=== PATIENT | female | born 1990 | race Caucasian/White ===

== ENCOUNTER 2022-09-29 07:39 | Inpatient (IN) ==
[2022-09-29] MEDS ORDERED: PENICILLIN G POTASSIUM 6 MU in DEXTROSE 5% 250 ML IV STA (08:16)
[2022-09-29] MEDS ORDERED: LIDOCAINE 1% LOCAL 20 ML VIAL INFIL PRN (08:16)
[2022-09-29] MEDS ORDERED: OXYTOCIN 30 UNITS/500 ML BAG IV PRN ×4 (08:16→22:49)
[2022-09-29] MEDS: SERTRALINE HCL 50 MG TABLET PO SCH ×2 (09:30→22:45)
[2022-09-29] MEDS: LACTATED RINGER'S 1,000 ML IV PRN ×3 (09:50→18:42)
--- NOTE | 2022-09-29 11:40 | History & Physical Report ---
Date of Service September 29, 2022 Assessment & Plan (1) Gestational hypertension: Plan: IUP at 37-1/7 weeks who presents for induction of labor because of gestational hypertension. We will begin penicillin G prophylaxis for GBS. We will also begin Pitocin induction per protocol. Epidural when requested. Anticipate vaginal . Admission and Anticipated Discharge Date Admission Date: September 29, 2022 History of Present Illness Primary Care Provider: NO PCP Patient is a 31-year-old G1, P0 female who presents for induction at 37-1/7 weeks because of gestational hypertension. At her routine OB visit yesterday, her blood pressure was 140/100 with 1+ proteinuria. She was sent to labor and delivery for blood pressure monitoring and preeclampsia blood work. Her blood pressure was normotensive and blood work was within the normal range. During her visit in labor and delivery, she had a cervical balloon placed. The balloon fell out at approximately 1700 last evening. She has had no contractions over the evening. She has experienced no PIH symptoms. 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 testing was reassuring. She has no current symptoms of HSV. Estimated weight on growth scan at 32 weeks was 64th percentile. GBS positive. 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 Depression with anxiety Zoloft 150mg PO daily. Has been doing well this . Gestational hypertension Herpes Started Valtrex at 36 Weeks. Last out break about 2 years ago. Surgical History S/P tonsillectomy S/P wisdom tooth extraction Family History Father Diabetes Hypertension Dyslipidemia Mother Heart disease Hypertension Dyslipidemia Hypothyroid Aunt Breast cancer Social History (Updated 09/29/22 @ 08:25 by Renae Kilgore RN) Smoking Status: Never smoker Do You Dip or Chew Tobacco: No; Hx Alcohol Use: No Hx Substance Use: No Preferred Language: Chinese Communication Ability: Effective Industrial Insulator Required: No Beliefs That Will Affect Care: None marital status: marital status details: Avel Bernard (31) [phone] Current Living Situation: Spouse Current Living Situation Comment: Lives with spouse and 1 dog. current occupational status: employed current occupation: [employer] Feels Safe at Home: Yes Safety Concerns: Feels Safe At This Time Diet: regular Assistive Devices: Glasses Review of Systems All systems reviewed & are unremarkable except as noted in HPI & below Physical Exam Constitutional: WD/WN, vitals as above Psychiatric: A+Ox3, euthymic affect Genitourinary: OB Exam Abdomen: + vertex and + estimated weight (7-8 pounds) Manual OB Exam: + cervical dilation 4 cm, + cervical effacement 80% and + station -1 OB Exam Monitor Tracing: + external FHT monitor used, + external uterine monitor used and + category I Results & Data Vital Signs (Past 12 Hours) Vital Signs Temp Pulse Resp BP 09/29/22 08:24 98.2 F 18 09/29/22 11:00 98.1 F 09/29/22 10:54 70 141/93 H 09/29/22 09:53 69 138/87 09/29/22 08:15 75 138/91 Coding Level of Care Code None Diagnoses Gestational hypertension O13.9
[2022-09-29] MEDS: PENICILLIN G POTASSIUM 3 MU in DEXTROSE 5% 100 ML IV PRN ×2 (13:34→17:59)
[2022-09-29] MEDS ORDERED: fentaNYL citrate PF 100 MCG/2 ML VIAL ONE (17:50)
[2022-09-29] MEDS ORDERED: ePHEDrine sulfate 50 MG/ML AMP ONE (17:50)
[2022-09-29] MEDS ORDERED: SODIUM CHLORIDE 0.9% PF INJ 10 ML VIAL ONE (17:51)
[2022-09-29] MEDS ORDERED: fentaNYL 2MCG/ML ROPIVACAINE 1.25MG/ML 100 ML BAG EPI ONE (17:51)
[2022-09-29] MEDS ORDERED: BUPIVACAINE 0.25% PF 30 ML VIAL ONE (17:51)
[2022-09-29] MEDS ORDERED: LIDOCAINE 2%/EPINEPHRINE 1:200,000 20 ML PF ONE (17:51)
--- NOTE | 2022-09-29 19:00 | Anesthesiology Consultation ---
Date of Service September 29, 2022 Assessment & Plan Chart Review Chart Review: Acceptable Risk for Labor Epidural Consults Requested none History Height/Weight Height: 5 ft 8 in Weight: 121.563 kg Allergies Allergy/AdvReac Type Severity Reaction Status Date / Time No Known Allergies Allergy Verified 09/29/22 08:25 Medications Home Medications Medication Instructions Recorded Confirmed Last Taken prenat.vits,shell,sfq-juro-iakgj 1 tab PO DAILY 03/07/22 09/29/22 09/28/22 sertraline 50 mg tablet 150 mg PO DAILY 05/06/22 09/29/22 09/28/22 valacyclovir 500 mg tablet 500 mg PO BID #60 tabs 09/15/22 09/29/22 09/29/22 (Valtrex) Active Medications Generic Name Dose Route Start Last Admin Trade Name Freq PRN Reason Stop Dose Admin Lactated Ringer's 1,000 mls @ 125 mls/hr 09/29/22 08:16 09/29/22 18:42 Lr IV 10/01/22 08:15 125 mls/hr .Q8H PRN Administration L&D Protocol Protocol Penicillin G Potassium 3 mu/ 106 mls @ 100 mls/hr 09/29/22 11:16 09/29/22 17:59 Dextrose IV 10/09/22 11:15 100 mls/hr Q4H PRN Administration GBS(+) Until Delivery Oxytocin 30 units in 500 mls @ 20 mls/hr 09/29/22 08:59 09/29/22 17:10 Pitocin IV 10/01/22 08:58 1.2 units/hr .Q24H PRN 20 mls/hr Labor Induction/Augmentation Titration Protocol 1.2 UNITS/HR Sertraline HCl 150 mg 09/29/22 09:30 09/29/22 09:30 Sertraline Hcl 50 Mg Tablet PO 10/29/22 09:29 Not Given DAILY RUDDY Past Medical History Medical History 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 Depression with anxiety Zoloft 150mg PO daily. Has been doing well this . Gestational hypertension Herpes Started Valtrex at 36 Weeks. Last out break about 2 years ago. Past Family History Family History Father Diabetes Hypertension Dyslipidemia Mother Heart disease Hypertension Dyslipidemia Hypothyroid Aunt Breast cancer Past Surgical History Surgical History S/P tonsillectomy S/P wisdom tooth extraction Social History Smoking Status: Never smoker Do You Dip or Chew Tobacco: No Hx Alcohol Use: No Hx Substance Use: No substance use type: does not use Physical Exam Vital Signs Last Vital Signs Temp 36.7 C 09/29/22 17:00 Pulse 80 09/29/22 18:58 Resp 20 09/29/22 17:00 BP 144/77 H 09/29/22 18:58 Pulse Ox 99 09/29/22 18:55 Testing Laboratory Results Blood Type A Positive 09/29/22 08:47 Antibody Screen NEGATIVE 09/29/22 08:47
[2022-09-29] MEDS ORDERED: diphenhydrAMINE 50 MG/ML VIAL IV PRN (19:03)
[2022-09-29] MEDS ORDERED: SODIUM CHLORIDE 0.9% PF INJ 10 ML VIAL EPI PRN (19:03)
[2022-09-29] MEDS ORDERED: ROPIVACAINE 0.5% PF 5 MG/ML 20 ML VIAL EPI PRN (19:03)
[2022-09-29] MEDS ORDERED: ePHEDrine sulfate 50 MG/ML AMP IV PRN (19:03)
[2022-09-29] MEDS ORDERED: BUPIVACAINE 0.25% PF 30 ML VIAL EPI STA (19:03)
[2022-09-29] MEDS ORDERED: fentaNYL 2MCG/ML ROPIVACAINE 1.25MG/ML 100 ML BAG EPI PRN (19:03)
[2022-09-29] MEDS ORDERED: fentaNYL citrate PF 100 MCG/2 ML VIAL EPI STA (19:03)
[2022-09-29] MEDS ORDERED: NALOXONE HCL 1 MG in SODIUM CHLORIDE 0.9% 1000ML 1,000 ML IV PRN (19:03)
[2022-09-29] MEDS ORDERED: LIDOCAINE 2%/EPINEPHRINE 1:200,000 20 ML PF EPI STA (19:03)
[2022-09-29] MEDS ORDERED: SODIUM CHLORIDE 0.9% PF INJ 10 ML VIAL EPI STA (19:03)
[2022-09-29] MEDS ORDERED: NALOXONE HCL 0.4 MG/1 ML VIAL/CARP IV PRN (19:03)
[2022-09-29] MEDS ORDERED: LIDOCAINE 2% MPF LOCAL 5 ML VIAL EPI PRN (19:03)
[2022-09-29] MEDS ORDERED: BUPIVACAINE 0.25% PF 30 ML VIAL EPI PRN (19:03)
[2022-09-29] MEDS ORDERED: fentaNYL citrate PF 100 MCG/2 ML VIAL EPI PRN (19:03)
[2022-09-29] MEDS ORDERED: NALBUPHINE HCL INJ 10 MG/ML AMP IV PRN (19:03)
[2022-09-29] MEDS ORDERED: HYDROCORTISONE ACETATE 25 MG SUPP PR PRN (22:49)
[2022-09-29] MEDS ORDERED: BENZOCAINE 20% AER SPR 82.5 GM CAN EXT PRN (22:49)
[2022-09-29] MEDS ORDERED: IBUPROFEN 600 MG TAB PO PRN (22:49)
[2022-09-29] MEDS ORDERED: ACETAMINOPHEN 325 MG TAB PO PRN (22:49)
[2022-09-29] MEDS ORDERED: oxyCODONE/ACETAMINOPHEN 5mg/325mg TAB PO PRN (22:49)
[2022-09-29] MEDS ORDERED: DIPHTHERIA/TETANUS/PERTUSSIS Vaccine (Tdap, Age 7+yrs) 0.5mL SYR/VL IM ONE (22:49)
--- NOTE | 2022-09-29 22:55 | Delivery Summary ---
Vaginal Delivery Summary Date of Service September 29, 2022 Vaginal Delivery Summary and 1st Degree LAC (vaginal) Patient is a 31-year-old 1 P0 female EDC of 10/19/2022 who presents at 37- 1/7 weeks for induction of labor because of gestational hypertension diagnosis. Cervical balloon was placed evening before induction. Pitocin induction was begun on the morning of 09/29/2022. Membranes were ruptured for clear fluid after 2 doses of penicillin G were given. She progressed to full dilation with effective epidural analgesia. She pushed effectively over intact perineum for delivery of a viable male in left occiput posterior presentation. The rest of the infant was delivered without maternal effort. He was placed on the mother's abdomen for further transferring and drying. There was initially poor respiratory effort and the cord was clamped and cut prior to 1 minute. He was taken to the baby bed for further stimulation at which point he was vigorous and moving all 4 limbs. After cord blood was obtained, the placenta was expressed intact with a three-vessel cord. bleeding was controlled with dilute Pitocin and fundal massage. A first-degree vaginal laceration that was bleeding in the left sulcal area was repaired with 3-0 chromic. Estimated blood loss was 200 cc mother and infant were doing well after delivery. [facility] [place] Vaginal Delivery Charge Delivery Type Details: and 1st Degree LAC (vaginal)
[2022-09-30] MEDS ORDERED: Nursing to Pharmacy Communication SCH (00:15)
--- NOTE | 2022-09-30 06:27 | Obstetrical Progress Note ---
Date of Service <Mitzi Yoo DO Erin - Last Filed: 09/30/22 06:30> September 30, 2022 Assessment & Plan <Mitzi Yoo DO Erin - Last Filed: 09/30/22 06:30> (1) care following vaginal delivery: Feels well today. Eating well, voiding well, ambulating well. Pain well controlled with prn analgesics. Routine care; OOB, ambulation, diet progression as tolerated. Plan for discharge tonight/in the morning tomorrow. After discharge will have 6 week follow-up with Dr. Painting. <Clarice Painting MD, FACOG - Last Filed: 09/30/22 06:47> (1) care following vaginal delivery: Subjective <Mitzi Yoo DO Erin - Last Filed: 09/30/22 06:30> Pt is a 31 y/o female who is PPD 1 following at 37 1/7 weeks. Pt was induced yesterday due to gestational HTN. Pt states that she is doing well this morning, just feeling tired since the delivery was late at night. She states she has not needed any pain medication since the delivery and her pain is a 1/10. She is having lochia, which is improving. She has been ambulating and voiding appropriately. No passing of gas or stool yet, but has been able to eat without nausea or vomiting. She is overall doing well and would like to go home as soon as possible. She is currently bottle and breast feeding. Constitutional: no fever, no chills or no sweats Respiratory: no dyspnea Cardiovascular: no chest pain or no palpitations Breast: no breast pain Genitourinary (female): no dysuria Neurologic: no headache(s) no changes in vision, no headaches Physical Exam <Mitzishilo Khan DO - Last Filed: 09/30/22 06:30> General: Alert, oriented. No acute distress. Cardiac: Regular rate and rhythm, no murmurs, rubs, or gallops. Respiratory: Clear to auscultation bilaterally, no wheezes/rales/rhonchi. No increased work of breathing. Symmetrical chest rise. No respiratory distress. Abdomen: Soft, nontender, nondistended. Bowel sounds present. Uterus: Uterine fundus firm. Lower extremities: No lower extremity edema or swelling. No deep calf pain. Results & Data <Mitzi Khan, DO - Last Filed: 09/30/22 06:30> Vital Signs (Past 12 Hours) Vital Signs Temp Pulse Resp BP BP Pulse Ox O2 Del Method 09/30/22 01:20 36.6 C 16 145/83 H 97 Room Air 09/30/22 00:45 36.9 C 18 09/30/22 00:15 20 09/29/22 23:45 20 09/29/22 23:30 18 09/29/22 23:15 18 09/29/22 23:00 20 09/29/22 22:45 18 09/29/22 19:00 20 09/29/22 18:45 20 09/29/22 19:15 36.6 C 18 09/30/22 00:47 83 145/89 H 09/30/22 00:15 77 135/78 09/29/22 23:46 75 131/82 09/29/22 23:31 74 133/81 09/29/22 23:15 87 99 09/29/22 23:10 74 100 09/29/22 23:05 76 100 09/29/22 23:02 83 159/72 H 09/29/22 23:00 78 97 09/29/22 22:55 79 98 09/29/22 22:50 76 97 09/29/22 22:45 78 100 09/29/22 22:46 78 148/70 H 09/29/22 22:40 82 100 09/29/22 22:35 81 138/65 100 09/29/22 22:30 83 99 09/29/22 22:25 90 98 09/29/22 22:22 90 92 09/29/22 22:20 81 134/61 97 09/29/22 22:15 76 98 09/29/22 22:12 95 H 86 L 09/29/22 22:10 86 98 09/29/22 22:06 82 151/69 H 09/29/22 22:05 82 98 09/29/22 22:00 89 99 09/29/22 21:55 94 H 97 09/29/22 21:52 92 H 86 L 09/29/22 21:50 78 98 09/29/22 21:51 79 139/76 09/29/22 21:45 92 H 99 09/29/22 21:40 36.8 C 82 99 09/29/22 21:37 85 152/79 H 09/29/22 21:35 103 H 98 09/29/22 21:33 102 H 92 09/29/22 21:30 87 99 09/29/22 21:25 89 99 09/29/22 21:21 75 132/79 09/29/22 21:20 87 98 09/29/22 21:15 79 99 09/29/22 21:10 83 100 09/29/22 21:05 81 100 09/29/22 21:06 74 141/75 H 09/29/22 21:00 70 100 09/29/22 20:55 76 100 09/29/22 20:50 69 100 09/29/22 20:45 82 100 09/29/22 20:40 81 98 09/29/22 20:35 71 100 09/29/22 20:30 71 99 09/29/22 20:29 73 155/89 H 09/29/22 20:25 72 153/85 H 100 09/29/22 20:20 71 100 09/29/22 20:21 71 153/90 H 09/29/22 20:15 74 100 09/29/22 20:16 72 158/84 H 09/29/22 20:10 74 100 09/29/22 20:09 73 151/86 H 09/29/22 20:05 74 100 09/29/22 20:06 75 156/93 H 09/29/22 20:00 76 100 09/29/22 19:59 78 132/70 09/29/22 19:55 75 100 09/29/22 19:54 77 141/73 H 09/29/22 19:50 82 100 09/29/22 19:48 83 145/77 H 09/29/22 19:45 82 100 09/29/22 19:46 86 141/71 H 09/29/22 19:44 79 139/71 09/29/22 19:42 85 125/63 09/29/22 19:40 99 09/29/22 19:40 79 09/29/22 19:40 72 142/86 H 09/29/22 19:38 74 143/85 H 09/29/22 19:35 80 99 09/29/22 19:34 82 154/80 H 09/29/22 19:32 79 154/78 H 09/29/22 19:30 79 154/84 H 100 09/29/22 19:28 83 161/93 H 09/29/22 19:26 74 158/87 H 09/29/22 19:25 75 98 09/29/22 19:24 81 149/81 H 09/29/22 19:22 82 147/82 H 09/29/22 19:20 79 146/78 H 100 09/29/22 19:18 82 149/80 H 09/29/22 19:15 83 100 09/29/22 19:16 80 151/82 H 09/29/22 19:14 86 153/86 H 09/29/22 19:12 86 147/83 H 09/29/22 19:10 99 09/29/22 19:10 88 09/29/22 19:10 83 145/74 H 09/29/22 19:08 83 146/76 H 09/29/22 19:05 86 99 09/29/22 19:06 88 157/82 H 09/29/22 19:04 86 148/81 H 09/29/22 19:02 78 142/77 H 09/29/22 19:00 99 09/29/22 19:00 85 09/29/22 19:00 86 144/77 H 09/29/22 18:58 80 144/77 H 09/29/22 18:56 82 145/74 H 09/29/22 18:55 82 99 09/29/22 18:54 86 138/70 09/29/22 18:52 97 H 159/71 H 09/29/22 18:50 88 98 09/29/22 18:49 74 134/63 09/29/22 18:45 81 100 09/29/22 18:40 76 100 09/29/22 18:35 75 100 09/29/22 18:30 75 99 09/29/22 18:25 76 100 <Clarice Painting MD, FACOG - Last Filed: 09/30/22 06:47> Co-Signing Physician Notes Resident Physician Supervision Note: I interviewed and examined the patient. Discussed with Dr. Khan and agree with findings and plan as documented in the note. Any exceptions or clarifications are listed here: [None] Documented By: Clarice Painting MD, FACOG Resident Activity Tracking <Mitzi Khan, - Last Filed: 09/30/22 06:30> Resident Involvement: Resident Care Provided Care Provided: OB Delivery
[2022-09-30 06:48] LABS: Hematocrit (blood only) 35.8 % (37.0-47.0); Mean Corpuscular Hemoglobin 28.8 pg (25.0-34.0); Mean Corpuscular Hgb Conc 33.5 g/dL (32.0-36.0); Mean Corpuscular Volume 86.1 fL (80.0-100.0); Platelet Count 222 K/uL (130-400); RDW Coefficient of Variation 14.2 % (11.5-14.5); Red Blood Count 4.16 M/uL (4.20-5.40); White Blood Count 17.93 K/ul (4.8-10.8)
[2022-09-30] MEDS: DOCUSATE SODIUM 100 MG CAP PO SCH ×2 (08:18→19:27)
[2022-09-30] MEDS: PRENATAL VITAMIN 1 TAB PO SCH (08:18)
--- NOTE | 2022-09-30 09:09 | Anesthesia Procedure Note ---
Date of Service September 30, 2022 Anesthesia Post Epidural Note Vital Signs Vital Signs: Temp Pulse Resp BP Pulse Ox O2 Del Method 97.9 F 90 16 156/91 H 98 Room Air 09/30/22 08:00 09/30/22 08:00 09/30/22 08:00 09/30/22 08:00 09/30/22 08:00 09/30/22 08:00 Pain Intensity Bilateral Abdomen: Pain Intensity: 2 Notes Mental Status: alert / awake / arousable and participated in evaluation Nausea / Vomiting: adequately controlled Pain: adequately controlled Airway Patency, RR, SpO2: stable & adequate BP & HR: stable & adequate Hydration State: stable & adequate Neuraxial Anesthesia: was administered and sensory block is resolving Anesthetic Complications: no major complications apparent and Pt Satisfied with anesthetic care Epidural: Removed without complications and With tip intact
[2022-09-30] MEDS ORDERED: bisacodyL 5 MG TABEC PO SCH (20:00)
[2022-09-30] MEDS ORDERED: SERTRALINE HCL 50 MG TABLET PO SCH (21:00)
[2022-10-01] MEDS ORDERED: bisacodyL 10 MG SUPP PR PRN
--- NOTE | 2022-10-01 06:02 | Obstetrical Progress Note ---
Date of Service <Mitzi Khan DO - Last Filed: 10/01/22 06:06> October 01, 2022 Assessment & Plan <Mitzi Khan DO - Last Filed: 10/01/22 06:06> (1) care following vaginal delivery: Pt doing well today. Eating well, voiding well, ambulating well. Pain well controlled without need for analgesics. Routine care; OOB, ambulation, continue regular diet. Anticipate discharge today. After discharge will have 6 week follow-up with Dr. Boykin. <Natalie Velasquez MD - Last Filed: 10/01/22 07:40> (1) care following vaginal delivery: Subjective <Mitzi Khan DO - Last Filed: 10/01/22 06:06> Pt is a 31 y/o female who is PPD 2 following at 37 1/7 weeks. Pt was induced 09/29 due to gestational HTN. She is doing well today. She states that she has been ambulating without any issues and tolerates a normal diet without nausea or vomiting. She is voiding on own. She has been passing gas and has had a bowel movement. Her pain has been about a 1/10 and she has not needed any analgesics so far. She has some persistent lochia that is improving. She is bottle and breast feeding. No questions or concerns at this time. She would like to go home today. Constitutional: no fever, no chills or no sweats Respiratory: no dyspnea Cardiovascular: no chest pain or no palpitations Breast: no breast pain Genitourinary (female): no dysuria Neurologic: no headache(s) no changes in vision, no headaches Physical Exam <Mitzi Khan DO - Last Filed: 10/01/22 06:06> General: Alert, oriented. No acute distress. Cardiac: Regular rate and rhythm, no murmurs, rubs, or gallops. Respiratory: Clear to auscultation bilaterally, no wheezes/rales/rhonchi. No increased work of breathing. Symmetrical chest rise. No respiratory distress. Abdomen: Soft, nontender, nondistended. Bowel sounds present. Uterus: Uterine fundus firm. Lower extremities: No lower extremity edema or swelling. No deep calf pain. Results & Data <Mitzi Khan DO - Last Filed: 10/01/22 06:06> Vital Signs (Past 12 Hours) Vital Signs Temp Pulse Resp BP Pulse Ox O2 Del Method 09/30/22 23:30 36.7 C 82 18 151/96 H 98 Room Air 09/30/22 19:25 36.7 C 85 20 159/61 H 98 Room Air <Natalie Velasquez MD - Last Filed: 10/01/22 07:40> Co-Signing Physician Notes Resident Physician Supervision Note: I interviewed and examined the patient. Discussed with Dr. Kahn and agree with findings and plan as documented in the note. Any exceptions or clarifications are listed here: PP2 s/p c/b ghtn, doing well. BPs have been consistently in the 150s. Exam benign and wnl. Denies s/s PET. Rec starting labetalol 200mg po bid. Pt strongly desires dc home but amenable to starting. If BPs respond nicely, can dc home and have early bp check next week. However if bps don't respond may need additional night to titrate and pt aware Documented By: Natalie Velasquez MD Resident Activity Tracking <Mitzi Khan DO - Last Filed: 10/01/22 06:06> Resident Involvement: Resident Care Provided Care Provided: OB Delivery
[2022-10-01 07:08] LABS: Hematocrit (blood only) 33.1 % (37.0-47.0)
[2022-10-01] MEDS ORDERED: LABETALOL HCL 200 MG TAB PO SCH ×2 (07:30→09:00)
[2022-10-01] MEDS: DOCUSATE SODIUM 100 MG CAP PO SCH (07:36)
[2022-10-01] MEDS: PRENATAL VITAMIN 1 TAB PO SCH (07:36)
== END 2022-10-01 12:07 | disposition home or self-care (01) | DRG 807 ==
LOC: 4S1 07:39 → 4E2 09-30 01:11

== ENCOUNTER 2024-07-13 03:03 | Inpatient (IN) ==
[2024-07-13] MEDS ORDERED: CALCIUM CARBONATE 500 MG CHEWABLE TAB PO PRN (04:30)
[2024-07-13] MEDS ORDERED: OXYTOCIN 30 UNITS/NSS 30 UNITS/500 ML BAG IV PRN ×2 (04:30→15:01)
[2024-07-13] MEDS ORDERED: LIDOCAINE 1% LOCAL 20 ML VIAL INFIL PRN (04:30)
[2024-07-13] MEDS ORDERED: ACETAMINOPHEN 325 MG TAB PO PRN ×2 (04:30→15:01)
--- NOTE | 2024-07-13 04:40 | History & Physical Report ---
Date of Service July 13, 2024 Assessment & Plan (1) Amniotic fluid leaking: Plan: 36 5/7 weeks with grossly ruptured membranes 3 hours ago and only irregular ctns start PCN prophylaxis & pitocin epidural when requested anticipate vaginal History of Present Illness Primary Care Provider: NO PCP Patient is 33 yo female EDC 08/06/23 who presents at 36 5/7 weeks with SPROM for clear fluid at 0100. no ctns yet- some cramping. GBS-positive. complicated by obesity. all testing has been reaasuring. 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 Gestational hypertension Herpes Depression with anxiety Zoloft 150mg PO daily. Surgical History S/P wisdom tooth extraction S/P tonsillectomy Family History Father Diabetes Hypertension Dyslipidemia Mother Heart disease Hypertension Dyslipidemia Hypothyroid Aunt Breast cancer Social History Smoking Status: Never smoker Second Hand Exposure: No; Do You Dip or Chew Tobacco: No; Hx Alcohol Use: No Hx Substance Use: No Preferred Language: Arabic Communication Ability: Effective Biological Science Technician Fish Required: No Beliefs That Will Affect Care: None marital status: marital status details: Avel Bernard (32) [phone] Current Living Situation: Spouse Current Living Situation Comment: 21 month old son and current occupational status: employed current occupation: PA @ [employer] How many Children do You have: 1 Other Information That Helps Us Care for You: No Feels Safe at Home: Yes Safety Concerns: Feels Safe At This Time Diet: regular Assistive Devices: Glasses Review of Systems All systems reviewed & are unremarkable except as noted in HPI & below Physical Exam Constitutional: WD/WN, vitals as above Psychiatric: A+Ox3, euthymic affect Genitourinary: OB Exam Abdomen: + vertex (confirmed by ultrasound), + estimated weight (6-7 pounds) and + irregular contractions Manual OB Exam: + cervical dilation (1), + cervical effacement 50%, + station -2 and + amniotic fluid (grossly ruptured) clear and nitrazine positive OB Exam Monitor Tracing: + external FHT monitor used, + external uterine monitor used, + category I and + normal FHT variability Results & Data Vital Signs (Past 12 Hours) Vital Signs Temp Pulse Resp BP 07/13/24 03:27 98.1 F 85 18 134/78 07/13/24 03:23 18 07/13/24 03:23 98.1 F 18 07/13/24 03:21 85 134/78 Code Status & VTE Plan VTE Prophylaxis Plan VTE Prophylaxis will be ordered: No Coding Level of Care Code 53053 INT INP/OBS CARE 140MIN Diagnoses Amniotic fluid leaking O42.90
[2024-07-13 04:59] LABS: Hematocrit (blood only) 35.8 % (37.0-47.0); Hemoglobin 11.8 g/dl (12.0-16.0); Mean Corpuscular Hemoglobin 27.5 pg (25.0-34.0); Mean Corpuscular Volume 83.4 fL (80.0-100.0); Mean Platelet Volume 10.8 fL (9.4-12.4); Platelet Count 254 K/uL (130-400); RDW Coefficient of Variation 14.4 % (11.5-14.5); Red Blood Count 4.29 M/uL (4.20-5.40); White Blood Count 15.03 K/ul (4.8-10.8)
[2024-07-13] MEDS: PENICILLIN GK 6 MU in DEXTROSE 5% 250 ML IV STA (05:10)
[2024-07-13] MEDS: LACTATED RINGER'S 1,000 ML IV PRN (05:10)
[2024-07-13] MEDS: BETAMETH SOD PHOS/ACETATE IA 6 MG/ML IM STA (05:31)
[2024-07-13] MEDS: PENICILLIN GK 3 MU in DEXTROSE 5% 100 ML IV PRN (10:16)
[2024-07-13] MEDS: OXYTOCIN 30 UNITS/NSS 30 UNITS/500 ML BAG IV PRN (10:17)
--- NOTE | 2024-07-13 11:31 | Anesthesiology Consultation ---
Date of Service July 13, 2024 Assessment & Plan Chart Review Chart Review: Acceptable Risk for Labor Epidural Consults Requested none ASA ASA2 Proposed Anesthesia Anesthesia Type: Labor Epidural Risk / Benefits Reviewed With: PT / POA / Parent / Guardian, Accepts Plan and Informed Consent Obtained History Height/Weight Height: 5 ft 8 in Weight: 122.924 kg Allergies Allergy/AdvReac Type Severity Reaction Status Date / Time No Known Allergies Allergy Verified 07/13/24 03:24 Medications Home Medications Medication Instructions Recorded Confirmed Last Taken sertraline 50 mg tablet 150 mg PO DAILY 05/06/22 07/13/24 07/12/24 09:00 [id number] PO 12/14/23 07/09/24 07/12/24 09:00 [ Plus] breast pump #1 ea 05/13/24 07/09/24 Unknown valacyclovir 500 mg tablet 500 mg PO BID #60 tabs 06/25/24 07/13/24 07/12/24 21:00 (Valtrex) aspirin 81 mg chewable tablet 81 mg PO DAILY 07/13/24 07/13/24 07/12/24 09:00 Active Medications Generic Name Dose Route Start Last Admin Trade Name Freq PRN Reason Stop Dose Admin Penicillin G Potassium 3 mu/ 106 mls @ 100 mls/hr 07/13/24 07:30 07/13/24 10:16 Dextrose IV 07/23/24 07:29 100 mls/hr Q4H PRN Administration GBS(+) Until Delivery Lactated Ringer's 1,000 mls @ 125 mls/hr 07/13/24 04:30 07/13/24 11:15 Lr IV 07/14/24 04:29 125 mls/hr .Q8H PRN Administration L&D Protocol Protocol Oxytocin 30 units in 500 mls @ 1 mls/hr 07/13/24 04:30 07/13/24 10:17 Pitocin 30 Units/Nss IV 07/15/24 04:29 0.06 units/hr .Q24H PRN 1 mls/hr Labor Induction/Augmentation Administration Protocol 0.06 UNITS/HR NPO Date Last Intake of Fluids: 07/13/24 Time Last Intake of Fluids: 09:00 Date Last Intake of Solids: 07/13/24 Time Last Intake of Solids: 09:15 Past Medical History Medical History (Updated 07/13/24 @ 04:36 by Clarice Painting MD, FACOG) Obesity 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 Gestational hypertension Herpes Depression with anxiety Zoloft 150mg PO daily. Exercise / Class Metabolic Activity II 4-5 Yardwork/Stairs/Walk up hill Past Family History Family History Father Diabetes Hypertension Dyslipidemia Mother Heart disease Hypertension Dyslipidemia Hypothyroid Aunt Breast cancer Past Surgical History Surgical History S/P wisdom tooth extraction S/P tonsillectomy Past Anesthesia History No Hx of Anesthesia Complications and No Family Hx of Anesthesia Complications History of PONV No Hx of PONV and No Hx of Motion Sickness Social History Smoking Status: Never smoker Do You Dip or Chew Tobacco: No Hx Alcohol Use: No Hx Substance Use: No substance use type: does not use Physical Exam Vital Signs Last Vital Signs Temp 36.8 C 07/13/24 09:25 Pulse 79 07/13/24 11:22 Resp 18 07/13/24 09:25 BP 145/80 H 07/13/24 11:02 Pulse Ox 97 07/13/24 11:22 Constitutional + obese ENMT Mouth: no TMJ abnormality Thyromental Distance: > or= 3.5 Finger Breadths Mallampati Class: III Neck normal visual inspection and trachea midline; neck extension not limited Respiratory normal respiratory effort Auscultation: lungs clear to auscultation bilaterally Cardiovascular Rate/Rhythm: regular rate and regular rhythm Heart Sounds: no murmur Musculoskeletal Spine: normal cervical ROM Extremities: full ROM of extremities Neurologic moves all extremities Psychiatric Orientation: alert and oriented x 3 Testing Laboratory Results 07/13/24 04:45 Blood Type A Positive 07/13/24 04:45 Antibody Screen NEGATIVE 07/13/24 04:45
[2024-07-13] MEDS: LIDOCAINE 2%/EPINEPHRINE 1:200,000 20 ML PF ONE (11:46)
[2024-07-13] MEDS: fentaNYL citrate PF 100 MCG/2 ML VIAL ONE (11:47)
[2024-07-13] MEDS: BUPIVACAINE 0.25% PF 30 ML VIAL ONE (11:47)
[2024-07-13] MEDS: fentANYL 2 MCG/ML BUPIVacaine 0.125%-NSS 100ML BAG ONE (11:48)
[2024-07-13] MEDS ORDERED: diphenhydrAMINE 50 MG/ML VIAL IV PRN (11:49)
[2024-07-13] MEDS ORDERED: SODIUM CHLORIDE 0.9% PF INJ 10 ML VIAL EPI PRN (11:49)
[2024-07-13] MEDS ORDERED: NALOXONE HCL 1 MG in SODIUM CHLORIDE 0.9% 1,000 ML IV PRN (11:49)
[2024-07-13] MEDS: ePHEDrine sulfate 50 MG/ML AMP ONE (11:49)
[2024-07-13] MEDS ORDERED: ROPIVACAINE 0.5% PF 5 MG/ML 20 ML VIAL EPI PRN (11:49)
[2024-07-13] MEDS ORDERED: BUPIVACAINE 0.25% PF 30 ML VIAL EPI PRN (11:49)
[2024-07-13] MEDS: SODIUM CHLORIDE 0.9% PF INJ 10 ML VIAL ONE (11:49)
[2024-07-13] MEDS ORDERED: PROMETHAZINE 6.25 MG/50.25 ML BAG IV PRN (11:49)
[2024-07-13] MEDS ORDERED: NALBUPHINE HCL INJ 10 MG/ML AMP IV PRN (11:49)
[2024-07-13] MEDS ORDERED: fentaNYL citrate PF 100 MCG/2 ML VIAL EPI PRN (11:49)
[2024-07-13] MEDS ORDERED: LIDOCAINE 2% MPF LOCAL 5 ML VIAL EPI PRN (11:49)
[2024-07-13] MEDS ORDERED: ONDANSETRON INJ 2 MG/ML 2 ML VIAL IV PRN (11:49)
[2024-07-13] MEDS ORDERED: ePHEDrine sulfate 50 MG/ML AMP IV PRN (11:49)
[2024-07-13] MEDS ORDERED: fentANYL 2 MCG/ML BUPIVacaine 0.125%-NSS 100ML BAG EPI PRN (11:49)
[2024-07-13] MEDS ORDERED: NALOXONE HCL 0.4 MG/1 ML VIAL/CARP IV PRN (11:49)
[2024-07-13] MEDS: SERTRALINE HCL 50 MG TABLET PO SCH (12:50)
[2024-07-13] MEDS: fentaNYL citrate PF 100 MCG/2 ML VIAL EPI STA (12:51)
[2024-07-13] MEDS: SODIUM CHLORIDE 0.9% PF INJ 10 ML VIAL EPI STA (12:51)
[2024-07-13] MEDS: BUPIVACAINE 0.25% PF 30 ML VIAL EPI STA (12:51)
[2024-07-13] MEDS: LIDOCAINE 2%/EPINEPHRINE 1:200,000 20 ML PF EPI STA (12:51)
--- NOTE | 2024-07-13 14:52 | Delivery Summary ---
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 Apgars: . Weight pending, please see nursery records Estimated QBL: 110cc Description of delivery: The patient presented to L&D with PPROM, was administered corticosteroids for prematurity, and then pitocin, she progressed to complete with epidural anesthesia. She then began to push. She spontaneously vaginally delivered a viable from the cephalic presentation. The head delivered in CHUCHO position. The anterior shoulder delivered, followed by the posterior shoulder, followed by the body. The baby was placed on mother's abdomen and a spontaneous cry was heard. Delayed cord clamping was employed, and the cord was doubly clamped and cut. Cord blood was obtained. The placenta was delivered spontaneously intact with a 3-vessel cord. The uterus and vagina were swept of clots and debris. IV pitocin was given. The uterus became firm. The cervix, vagina, and perineum were inspected and no lacerations were noted. Excellent hemostasis was observed. The mother and baby are recovering in stable and good condition in the room. Sponge and instrument counts were correct x 2. Shiloh Freitas DO [facility] Vaginal Delivery Charge Vaginal Delivery Codes: 81866 global code for the antepartum, delivery, and post- Delivery Type Details: [facility]
[2024-07-13] MEDS ORDERED: oxyCODONE/ACETAMINOPHEN 5mg/325mg TAB PO PRN (15:01)
[2024-07-13] MEDS ORDERED: IBUPROFEN 600 MG TAB PO PRN (15:01)
[2024-07-13] MEDS ORDERED: HYDROCORTISONE ACETATE 25 MG SUPP PR PRN (15:01)
[2024-07-13] MEDS ORDERED: BENZOCAINE 20% SPRY 85 APPLN/85 GM CAN EXT PRN (15:01)
[2024-07-13] MEDS ORDERED: bisacodyL 10 MG SUPP PR PRN (15:01)
[2024-07-13] MEDS: DIPHTHER/TETAN/PERTUS Vaccine (Tdap, Adol/Adult) 0.5mL IM ONE (15:32)
--- NOTE | 2024-07-13 15:48 | Anesthesia Procedure Note ---
Date of Service July 13, 2024 Anesthesia Post Epidural Note Vital Signs Vital Signs: Temp Pulse Resp BP Pulse Ox 36.9 C 74 18 135/72 98 07/13/24 13:00 07/13/24 15:35 07/13/24 15:35 07/13/24 15:35 07/13/24 14:47 Notes Mental Status: alert / awake / arousable and participated in evaluation Nausea / Vomiting: adequately controlled Pain: adequately controlled Airway Patency, RR, SpO2: stable & adequate BP & HR: stable & adequate Hydration State: stable & adequate Neuraxial Anesthesia: was administered and sensory block is resolving Anesthetic Complications: no major complications apparent and Pt Satisfied with anesthetic care Epidural: Removed without complications and With tip intact
[2024-07-13] MEDS: DOCUSATE SODIUM 100 MG CAP PO SCH (19:53)
[2024-07-14 06:54] LABS: Hematocrit (blood only) 33.4 % (37.0-47.0); Hemoglobin 10.9 g/dl (12.0-16.0)
--- NOTE | 2024-07-14 08:07 | Obstetrical Progress Note ---
Date of Service July 14, 2024 Assessment & Plan (1) care and examination: PPD#1 doing well. . Continue routine care, anticipate DC home tomorrow. Subjective Ambulation: ambulating normally Voiding: no voiding problems Diet Tolerance:: regular diet Lochia:: Moderate Review of Systems All systems reviewed & are unremarkable except as noted in HPI & below Physical Exam Constitutional WD/WN, vitals as above no acute distress Respiratory normal respiratory effort Cardiovascular Rate/Rhythm: regular rate and regular rhythm Gastrointestinal (Abdomen) Inspection/Auscultation: abdomen normal to inspection; abdomen not distended Percussion/Palpation: abdomen soft Genitourinary OB Exam Abdomen: + fundal height Fundus: + firm; not tender Results & Data Vital Signs (Past 12 Hours) Vital Signs Temp Pulse Resp BP O2 Del Method 07/14/24 04:15 36.6 C 69 14 126/78 Room Air 07/13/24 23:00 36.6 C 81 14 152/84 H Room Air
[2024-07-14] MEDS: PRENATAL VITAMIN 1 TAB PO SCH (08:22)
[2024-07-14] MEDS: bisacodyL 5 MG TABEC PO SCH (21:38)
[2024-07-15 00:11] VITALS: O2SAT 99
--- NOTE | 2024-07-15 07:58 | Obstetrical Progress Note ---
Date of Service July 15, 2024 Assessment & Plan (1) care and examination: PPD#2 doing well, DC home. Followup 6wPP. Subjective Ambulation: ambulating normally Voiding: no voiding problems Diet Tolerance:: regular diet Lochia:: Moderate Review of Systems All systems reviewed & are unremarkable except as noted in HPI & below Physical Exam Constitutional WD/WN, vitals as above no acute distress Respiratory normal respiratory effort Cardiovascular Rate/Rhythm: regular rate and regular rhythm Gastrointestinal (Abdomen) Inspection/Auscultation: abdomen normal to inspection; abdomen not distended Percussion/Palpation: abdomen soft Genitourinary OB Exam Abdomen: + fundal height Fundus: + firm; not tender Results & Data Vital Signs (Past 12 Hours) Vital Signs Temp Pulse Resp BP Pulse Ox O2 Del Method 07/15/24 03:56 36.5 C 62 19 127/82 99 Room Air 07/15/24 00:05 36.8 C 77 16 130/83 99 Room Air 07/14/24 20:00 36.7 C 79 17 126/80 100 Room Air
[2024-07-15 09:56] VITALS: BP 129/79; PULSE 79; RESP 18; TEMP 98.2
== END 2024-07-15 11:00 | disposition home or self-care (01) | DRG 807 ==
LOC: OPB 03:03 → 4S1 03:04 → 4E2 19:52